=== PATIENT | male | born 1940 | race Caucasian/White ===

== ENCOUNTER → 2017-08-20 | Outpatient (CLI) | payer OTHER | LOC: BHFA 15:30 | PROVIDERS: ATTEND Internal Medicine Cardiovascular Disease | DX: M79.606 Pain in leg, unspecified (principal); R25.2 Cramp and spasm ==

== ENCOUNTER → 2018-07-02 | Outpatient (CLI) | payer OTHER | LOC: CIMAGING 10:11 | PROVIDERS: ATTEND Family Medicine | DX: I77.89 Other specified disorders of arteries and arterioles (principal); G31.84 Mild cognitive impairment of uncertain or unknown etiology | CPT/HCPCS: 93880-PO ==

== ENCOUNTER → 2018-09-04 | Outpatient (CLI) | payer OTHER | LOC: CIMAGING 10:22 | PROVIDERS: ATTEND Family Medicine | DX: I83.90 Asymptomatic varicose veins of unspecified lower extremity (principal); M79.604 Pain in right leg; M79.605 Pain in left leg | CPT/HCPCS: 93970-PO ==